=== PATIENT | female | born 1955 | race Hispanic/Latino ===

== ENCOUNTER 2023-04-22 12:03 | Emergency (ER) | payer SELFPAY ==
[2023-04-22] VITALS (19 sets, daily range): BP systolic 153–258; BP diastolic 72–133
[~2023-04-22] VITALS: Ht 154.9 cm; Wt 95.2 kg
[2023-04-22 12:54] LABS: BASO% 0.6 % (0-3); EOS% 0.6 % (0-8); HEMATOCRIT 44.1 % (37.0-47.0); HEMOGLOBIN 14.1 g/dl (12.0-16.0); IMMATURE GRANULOCYTES 0.3 % (0.0-5.0); LYMPH% 24.6 % (15-41); MEAN CELL VOLUME 87.8 fL CALC (80.0-100.0); MEAN CORPUSCULAR HGB 28.1 pG CALC (26.0-32.0); MONO% 5.3 % (2-13); NEUT# 6.21 thou/uL (2.00-7.15); NEUT% 68.6 % (42-76); RED BLOOD COUNT 5.02 mill/uL (4.20-5.60); RED CELL DISTRI WIDTH 13.2 % (11.5-15.5)
[2023-04-22 13:04] LABS: ALBUMIN 4.6 g/dL (3.2-5.0); ALKALINE PHOSPHATASE 216 u/l (38-126); ANION GAP 13 (6-22 (CALC)); BILIRUBIN, TOTAL 0.3 mg/dL (0.02-1.3); BUN 14 mg/dL (8-23); BUN/CREATININE RATIO 25 (12-20 (CALC)); CARBON DIOXIDE 24 mmol/l (22-30); CHLORIDE 106 mmol/l (95-108); CREATININE 0.6 mg/dL (0.5-1.0); GFR FOR AFR.AMER. > 60 ML/MIN (>=60 (CALC)); GFR OTHER RACES > 60 ML/MIN (>=60 (CALC)); POTASSIUM 3.8 mmol/l (3.5-5.1); SGOT/AST 40 u/l (9-36); SODIUM 140 mmol/l (137-146)
[2023-04-22] MEDS ORDERED: LISINOPRIL10 MG PO (13:27)
[2023-04-22] MEDS ORDERED: AMOX/K CLAV875 M1 PO (13:30)
== END 2023-04-22 13:54 | disposition home or self-care (01) | DRG 159 ==
LOC: ED 12:03
PROVIDERS: Family Medicine
DX: K06.8 Other specified disorders of gingiva and edentulous alveolar ridge (principal); I10 Essential (primary) hypertension; E11.9 Type 2 diabetes mellitus without complications